=== PATIENT | female | born 1975 | race Caucasian/White ===

== ENCOUNTER → 2020-10-31 | Outpatient (CLI) | payer OTHER | LOC: KOH-I 10-20 13:00 | DX: D44.0 Neoplasm of uncertain behavior of thyroid gland (principal); E04.2 Nontoxic multinodular goiter | CPT/HCPCS: 76536 ==

== ENCOUNTER → 2021-10-05 | Outpatient (CLI) | payer OTHER | LOC: EXRD 09:58 | DX: R10.13 Epigastric pain (principal) | CPT/HCPCS: 76700 ==

== ENCOUNTER → 2022-01-04 | Outpatient (CLI) | payer OTHER | LOC: KOH-I 11:54 | DX: M54.16 Radiculopathy, lumbar region (principal) | CPT/HCPCS: 72100 ==

== ENCOUNTER → 2022-01-19 | Outpatient (CLI) | payer OTHER | LOC: CT 01-10 11:00 | DX: K52.9 Noninfective gastroenteritis and colitis, unspecified (principal); R56.9 Unspecified convulsions | CPT/HCPCS: Q9967 ==